=== PATIENT | female | born 1970 | race Hispanic/Latino ===

== ENCOUNTER → 2019-08-23 | Outpatient (CLI) | payer BC ==
--- NOTE | 2019-08-23 09:39 | Diagnostic Imaging Report ---
Exam: Chest radiograph Clinical History: Pneumonia Findings: The cardiomediastinal silhouette and lungs are normal. The regional skeleton and soft tissue are unremarkable. There is no evidence of pleural effusion or pneumothorax. Impression: No radiographic evidence of acute cardiopulmonary disease. Signed by: Dr. Christiano Croft MD on 08/23/2019 9:36 AM
== END ==
LOC: RAD 08:46
PROVIDERS: ATTEND Family Medicine
DX: J18.0 Bronchopneumonia, unspecified organism (principal)
CPT/HCPCS: 71046

== ENCOUNTER 2025-04-10 15:01 | Emergency (ER) | payer BC, OTHER ==
[~2025-04-10] VITALS: Ht 152.4 cm; Wt 80.1 kg
[2025-04-10] MEDS ORDERED: FAMOTIDINE 20 MG TAB ONE (15:19)
[2025-04-10] MEDS ORDERED: PREDNISONE 20 MG TAB ONE (15:19)
[2025-04-10] MEDS ORDERED: DIPHENHYDRAMINE HCL 25 MG CAP ONE (15:19)
[2025-04-10] MEDS: DIPHENHYDRAMINE HCL 25 MG CAP PO ONE (15:26)
[2025-04-10] MEDS: FAMOTIDINE 20 MG TAB PO ONE (15:27)
[2025-04-10] MEDS: PREDNISONE 20 MG TAB PO STA (15:27)
[2025-04-10] MEDS ORDERED: EPINEPHRIN0.3 MG/0.3 IM (16:42)
[2025-04-10] MEDS ORDERED: PREDNISONE20 MG PO (16:42)
[2025-04-10 16:45] VITALS: PULSE 85; RESP 20; TEMP 97.9; O2SAT 98
== END 2025-04-10 16:47 | disposition home or self-care (01) ==
LOC: FSED 15:14
DX: T78.01XA Anaphylactic reaction due to peanuts, initial encounter (principal); I10 Essential (primary) hypertension; J45.909 Unspecified asthma, uncomplicated
CPT/HCPCS: 99282; J7512